=== PATIENT | female | born 1960 | race Caucasian/White ===

== ENCOUNTER → 2017-03-25 | Outpatient (CLI) | payer BC ==
[~2017-03-25] MED LIST: HCT25T PO
--- NOTE | 2017-03-25 18:23 | Diagnostic Imaging Report ---
Bilateral screening mammogram 2D views with tomosynthesis The current study was also evaluated with a Computer Aided Detection (CAD) system. Indication: Screening. No current complaints stated on the questionnaire. COMPARISON: 03/14/2016. FINDINGS: The breasts are composed of scattered fibroglandular densities. There are no masses, architectural distortion or suspicious cluster of calcifications. Allowing for technique and positional differences, no suspicious change is seen. IMPRESSION: No significant change. ACR BI-RADS Category 2: Benign findings. Result letter will be mailed to the patient. Note: At least 10% of breast cancer is not imaged by mammography. Dictated by: Dictated on workstation # [id number]
== END ==
LOC: RAD 07:15
PROVIDERS: ATTEND Nurse Practitioner Family
DX: Z12.31 Encounter for screening mammogram for malignant neoplasm of breast (principal)
CPT/HCPCS: 77067

== ENCOUNTER → 2018-11-09 | Outpatient (CLI) | payer BC ==
--- NOTE | 2018-11-09 10:26 | Diagnostic Imaging Report ---
INDICATION: Routine screening. COMPARISON: 03/25/2017 and 03/14/2016. TECHNIQUE: 2D and 3D bilateral screening mammography was performed with CAD. FINDINGS: Scattered fibroglandular densities are identified bilaterally. There is an irregular density identified in the central right breast on the CC view just lateral to the nipple line. This is best seen on tomographic image 48 out of 78 on the CC views. This may be superiorly located on the MLO view. Additional views are recommended. The left breast appears stable. No suspicious calcifications are seen. The axillae are unremarkable. IMPRESSION: Right breast density. Additional views are recommended for further evaluation. ACR BI-RADS Category 0: Incomplete. (Needs additional imaging evaluation). Result letter will be mailed to the patient. Note: At least 10% of breast cancer is not imaged by mammography. Dictated by: Dictated on workstation # [id number]
== END ==
LOC: RAD 08:17
PROVIDERS: ATTEND Nurse Practitioner
DX: Z12.31 Encounter for screening mammogram for malignant neoplasm of breast (principal)
CPT/HCPCS: 77067

== ENCOUNTER → 2018-12-24 | Outpatient (CLI) | payer BC ==
--- NOTE | 2018-12-24 15:36 | Diagnostic Imaging Report ---
INDICATION: Right breast density. Patient presents for additional views. COMPARISON: Correlation is made with the screening mammogram of 11/09/2018. TECHNIQUE: Unilateral right 2D and 3D diagnostic mammography was performed with CAD. This includes spot compression CC and ML views as well as conventional 90 degree lateral views. FINDINGS: The additional views show a persistent slightly irregular density in the upper right breast approximately 9 cm from the nipple. No suspicious calcifications are seen. The right axilla is unremarkable. IMPRESSION: Persistent small density in the upper right breast approximately 9 cm from the nipple. Further evaluation with ultrasound is recommended and will be performed today. ACR BI-RADS Category 0: Incomplete. (Needs additional imaging evaluation). Result letter will be mailed to the patient. Note: At least 10% of breast cancer is not imaged by mammography. Dictated by: Dictated on workstation # [id number]
--- NOTE | 2018-12-24 15:42 | Diagnostic Imaging Report ---
INDICATION: Right breast density. COMPARISON: Correlation is made with the diagnostic mammogram from earlier this same day and the screening mammogram from 11/09/2018. TECHNIQUE: Sonographic interrogation of the upper right breast was performed. FINDINGS: There is a normal-appearing lymph node at the 10 o'clock location 6 cm from the nipple measuring approximately 7 mm x 4 mm x 5 mm. No suspicious mass is identified. No abnormality is identified to account for the irregular density noted on the mammogram. IMPRESSION: No suspicious sonographic abnormality is seen. Even so, a followup right mammogram and right breast ultrasound in 6 months is recommended to show continued stability. ACR BI-RADS Category 3: Probably benign findings. Dictated by: Dictated on workstation # [id number]
== END ==
LOC: RAD 14:06
PROVIDERS: ATTEND Nurse Practitioner
DX: R92.2 Inconclusive mammogram (principal)

== ENCOUNTER 2019-01-18 06:30 | Outpatient (CLI) | payer BC ==
[~2019-01-18] VITALS: Ht 162.6 cm; Wt 107.3 kg
[2019-01-18] MEDS ORDERED: MAGN400T39 PO (12:06)
[2019-01-18] MEDS ORDERED: NFPREMP0.3 PO (12:06)
[2019-01-18] MEDS ORDERED: MV-M1TAB57 PO (12:06)
[2019-01-18] MEDS ORDERED: CETI10TA20 PO (12:06)
[2019-01-18] MEDS ORDERED: CHOL500044 PO (12:06)
== END 2019-01-18 12:08 | disposition home or self-care (01) ==
LOC: PREOP 06:30
PROVIDERS: ATTEND Surgery
DX: Z01.818 Encounter for other preprocedural examination (principal)

== ENCOUNTER 2019-01-22 10:30 | Day surgery (SDC) | payer BC ==
[~2019-01-22] VITALS: Ht 162.6 cm; Wt 107.3 kg
[2019-01-22] VITALS (13 sets, daily range): BP systolic 103–142; BP diastolic 55–83
[~2019-01-22 10:30] MED LIST changes: +CETI10TA20 PO; +CHOL500044 PO; +ESTR1TAB14 PO; +MAGN400T39 PO; +MV-M1TAB57 PO
[2019-01-22] MEDS ORDERED: NS IV 500 ML 500 ML IV PRN (10:32)
[2019-01-22] MEDS ORDERED: NS IV 500 ML 500 ML ONE (10:39)
[2019-01-22] MEDS ORDERED: fentaNYL INJECTION 100 MCG/2 ML AMP IVP ONE (10:45)
[2019-01-22] MEDS ORDERED: LIDOCAINE JELLY 2% 6 ML SYRINGE MM PRN (10:45)
[2019-01-22] MEDS ORDERED: fentaNYL INJECTION 100 MCG/2 ML AMP ONE (11:30)
[2019-01-22] MEDS ORDERED: MIDAZOLAM 5 MG/5 ML (VERSED) VIAL ONE ×2 (11:30→11:44)
[2019-01-22] MEDS ORDERED: LIDOCAINE JELLY 2% 6 ML SYRINGE ONE (11:30)
--- NOTE | 2019-01-22 11:31 | Conscious Sedation/ASA ---
Conscious Sedation Pre-Proced Time 11:20 ASA Score 2 For ASA 3 and 4: Consider anesthesia and medical clearance. Also, for patients with a history of failed moderate sedation consider anesthesia. Airway Lungs Heart ASA score ASA 1: a normal healthy patient ASA 2: a patient with a mild systemic disease (mid diabetes, controlled hypertension, obesity ASA 3: a patient with a severe systemic disease that limits activity (angina, COPD, prior Myocardial infarction) ASA 4: a patient with an incapacitating disease that is a constant threat to life (CHF, renal failure) ASA 5: a moribund patient not expected to survive 24 hrs. (ruptured aneurysm) ASA 6: a declared brain- patient whose organs are being harvested. For emergent operations, add the letter E after the classification Mallampati Classification Grade 2 Sedation Plan Analgesia, Amnesia, Plan communicated to team members, Discussed options with patient/fam, Discussed risks with patient/fam The patient is an appropriate candidate to undergo the planned procedure, sedation, and anesthesia. The patient immediately re-assessed prior to indication. RANI EDGAR MD Jan 22, 2019 11:31
--- NOTE | 2019-01-22 11:32 | Progress Note-Pre Operative ---
Pre-Operative Progress Note H&P Reviewed The H&P was reviewed, patient examined and no changes noted. Date Seen by Provider: Jan 22, 2019 Time Seen by Provider: 11:20 Date H&P Reviewed: Jan 22, 2019 Time H&P Reviewed: 11:20 Pre-Operative Diagnosis: screening/family hx colon ca RANI EDGAR MD Jan 22, 2019 11:32
--- NOTE | 2019-01-22 11:34 | Discharge Inst-Surgical ---
D/C Lap Instructions-KIDO New, Converted, or Re-Newed RX: RX on Chart Follow Up Activity as tolerated High Fiber Diet 25g or more per day Avoid Alcohol, Caffeine, Spicy [place] and Acid foods. Drink 64 fluid oz or more of fluids per day. Symptoms to Report: Fever over 101 degree F, Nausea/Vomiting If any problems/questions: Contact your physician or go to Emergency Room RANI EDGAR MD Jan 22, 2019 11:34
[2019-01-22] MEDS: MIDAZOLAM 5 MG/5 ML (VERSED) VIAL IV PRN ×5 (11:35→11:47)
[2019-01-22] MEDS ORDERED: morphine INJ 10 MG/ML 1ML (SYR OR VIAL) IVP PRN ×2 (11:45)
[2019-01-22] MEDS ORDERED: ACETAMINOPHEN 325 MG TABLET PO PRN (11:45)
[2019-01-22] MEDS ORDERED: ONDANSETRON 4 MG/2 ML (SDV) Z0FRAN IVP PRN (11:45)
[2019-01-22] MEDS ORDERED: HYDROcodone/APAP 5 MG/325 MG (LORTAB) TAB PO PRN (11:45)
--- NOTE | 2019-01-22 16:31 | OPERATIVE REPORT ---
DATE OF SERVICE: 01/22/2019 ATTENDING PRIMARY CARE PHYSICIAN: Marsha Toure DO PREOPERATIVE DIAGNOSIS: Screening colonoscopy with family history of colon cancer. POSTOPERATIVE DIAGNOSIS: Mild chronic stage II external and internal hemorrhoids. Remainder of the colon and rectum were normal. PROCEDURE: Colonoscopy. SURGEON: Rani Conley MD ANESTHESIA: Conscious sedation. ESTIMATED BLOOD LOSS: Minimal. FINDINGS: Same as postoperative diagnosis. DISPOSITION: The patient tolerated the procedure well. INDICATIONS: The patient is a 58-year-old female in need of a followup colonoscopy. Her last colonoscopy was in 2012 and she was found to have mild diverticulosis; however, no other abnormalities. She does have a family history of cancers including a father with colon cancer and a sister with breast cancer as well as 2 paternal cousins with colon cancer. She states that she is otherwise doing well and is having normal bowel movements and does not report any red blood per rectum nor any dark tarry stools. DESCRIPTION OF PROCEDURE: The patient was brought to the endoscopy suite, laid in left lateral decubitus position. After adequate IV pain and sedative medications and conscious sedation anesthesia, a digital rectal examination was performed. Mild chronic stage II external and internal hemorrhoids were identified, which were not actively edematous nor inflamed and no bleeding. Normal sphincter tone was felt and there were no palpable masses. The endoscope was then intubated to the anus and rectum gently insufflated. The endoscope was then advanced to the valves of Hernandez and rectum with no polyps or any neoplasms identified. Through the sigmoid colon, no significant diverticulosis was identified. The endoscope was then advanced to the remainder of the descending, transverse and ascending colon to the cecum. These segments were normal. There were no polyps or any neoplasms identified throughout the colon or rectum. The endoscope was then slowly withdrawn while taking a second look and suctioning of residual air with no additional findings. The patient tolerated the procedure well. We will recommend at least 25 grams of fiber a day as well as significant amounts of water to promote soft stools on a daily basis. Due to her family history of colon cancer, we will recommend a followup colonoscopy in approximately 5 years. Job ID: [id number] DocumentID: [id number] Dictated Date: 01/22/2019 11:59:21 Curing Oven Attendant Date: 01/22/2019 16:30:40 Dictated By: RANI CONLEY MD
== END 2019-01-22 13:00 | disposition home or self-care (01) ==
LOC: ENDO 10:30
PROVIDERS: ATTEND Surgery
DX: Z12.11 Encounter for screening for malignant neoplasm of colon (principal); K64.1 Second degree hemorrhoids; K64.8 Other hemorrhoids; Z80.0 Family history of malignant neoplasm of digestive organs; Z80.3 Family history of malignant neoplasm of breast; Z79.52 Long term (current) use of systemic steroids; Z80.41 Family history of malignant neoplasm of ovary; Z79.899 Other long term (current) drug therapy; Z82.49 Family history of ischemic heart disease and other diseases of the circulatory system

== ENCOUNTER → 2019-09-17 | Outpatient (CLI) | payer BC ==
[~2019-09-17] MED LIST changes: -CETI10TA20 PO; +CETI10TA21 PO; -ESTR1TAB14 PO; +NFPREMP0.3 PO
--- NOTE | 2019-09-17 15:22 | Diagnostic Imaging Report ---
INDICATION: Right breast density. Patient presents for follow-up. CORRELATION is made with prior mammogram from 11/09/2018 and 03/25/2017. Unilateral right 2-D and 3-D diagnostic mammography was performed. Scattered fibroglandular densities are noted. Slightly irregular density in the upper right breast mid to posterior depth is again noted, shows no significant change. No other masses are seen. No suspicious calcifications are identified. Right axilla is unremarkable. IMPRESSION: BI-RADS 0. Persistent density right breast similar to prior exam. Additional follow-up with ultrasound is recommended and will be performed today. ACR BI-RADS Category 0: Incomplete. (Needs additional imaging evaluation). Result letter will be mailed to the patient. Note: At least 10% of breast cancer is not imaged by mammography. Dictated by: Dictated on workstation # [id number]
--- NOTE | 2019-09-17 16:16 | Diagnostic Imaging Report ---
INDICATION: Right breast density. COMPARISON: Correlation is made with diagnostic mammogram earlier the same day. Comparison is also made with mammograms from November 2018 as well as a right breast ultrasound from November 2018. EXAMINATION: Sonographic interrogation upper right breast was performed. FINDINGS: There is a slightly irregular area of hypoechogenicity at the 12:30 location of the right breast, 8 cm from the nipple. This measures 5 mm x 6 mm x 3 mm. No definite internal vascularity is present. This does correlate in size and location to the density noted mammographically. No other abnormality is identified. IMPRESSION: Irregular hypoechogenicity 12:30 location right breast, 8 cm from the nipple. This most likely accounts for the density noted mammographically. This is concerning for small breast neoplasm. Tissue sampling is recommended. This would be amenable to ultrasound-guided core biopsy. ACR BI-RADS Category 4: Suspicious abnormality. Result letter will be mailed to the patient. Note: At least 10% of breast cancer is not imaged by mammography. Dictated by: Dictated on workstation # [id number]
== END ==
LOC: RAD 13:53
PROVIDERS: ATTEND Internal Medicine
DX: N63.10 Unspecified lump in the right breast, unspecified quadrant (principal)
CPT/HCPCS: 76642; 77065; G0279

== ENCOUNTER → 2019-09-27 | Outpatient (CLI) | payer BC ==
[~2019-09-27] VITALS: Ht 162.6 cm; Wt 105.9 kg
[~2019-09-27] MED LIST changes: +LIDOCAINE 1% INJ 20 ML 20 ML VIAL INJ ONE
--- NOTE | 2019-09-27 11:35 | Diagnostic Imaging Report ---
INDICATION: Right breast nodule. Patient presents for ultrasound-guided biopsy. Patient was brought to the procedure room and placed on table in the supine position. Ultrasound imaging of the right breast was performed to evaluate appropriate entry site. The right breast was then prepped and draped in usual sterile fashion. Small amount of 1% lidocaine was utilized for local anesthesia. The 13-gauge vacuum-assisted handheld mammotome device was advanced and placed with the biopsy chamber adjacent to the hypoechoic lesion at the 12:30 location of the right breast, 8 cm from the nipple. A total of 3 core biopsies were obtained. The device was removed and a marker clip was then deployed adjacent to the biopsy site. Hemostasis was obtained using manual compression. Patient tolerated the procedure well and left the department in stable condition. IMPRESSION: Successful ultrasound-guided core biopsy of the hypoechoic lesion 12:30 location right breast, 8 cm from the nipple. Vacuum assisted device was utilized. Pathology results are currently pending. Dictated by: Dictated on workstation # [id number]
--- NOTE | 2019-09-27 12:52 | Diagnostic Imaging Report ---
INDICATION: Right breast density. Patient is status post ultrasound-guided biopsy. Unilateral right 2-D CCA and ML mammography was performed post-ultrasound biopsy. There is a marker clip in the upper central right breast near the previously noted irregular density. There is some increased density at this location consistent with some hematoma status post biopsy. IMPRESSION: Status post right breast biopsy with marker clip in place. Pathology results are currently pending. Dictated by: Dictated on workstation # [id number]
== END ==
LOC: RAD 08:31
PROVIDERS: ATTEND Internal Medicine
DX: N64.9 Disorder of breast, unspecified (principal); N63.10 Unspecified lump in the right breast, unspecified quadrant
CPT/HCPCS: 19083; 77065; G0279

== ENCOUNTER → 2022-07-11 | Outpatient (CLI) | payer BC ==
[~2022-07-11] MED LIST changes: -CETI10TA21 PO; +CETI10TA49 PO; -LIDOCAINE 1% INJ 20 ML 20 ML VIAL INJ ONE
--- NOTE | 2022-07-11 13:44 | Diagnostic Imaging Report ---
INDICATION: SOB, cough. COMPARISON: None. FINDINGS: Frontal and lateral views of the chest demonstrate normal heart size and pulmonary vascularity. The lungs are clear. There are no signs of infiltrate, pleural effusions, or pneumothoraces. The visualized osseous structures show no acute abnormalities. IMPRESSION: No acute process. No signs of infiltrates, effusions, or pneumothoraces. Dictated by: Dictated on workstation # [id number]
== END ==
LOC: RAD 11:08
PROVIDERS: ATTEND Surgery
DX: R06.02 Shortness of breath (principal); R05.9 Cough, unspecified
CPT/HCPCS: 71046